=== PATIENT | female | born 1955 | race Caucasian/White ===

== ENCOUNTER → 2021-06-29 | Outpatient (CLI) | payer MEDICARE ==
[~2021-06-29] MED LIST: ADVAIR 250-501 EACH INH; BENICAR20 MG PO; CITALOPRAM HBR20 MG PO; CYCLOBENZAPRINE10 MG PO; DILTIAZEM 24HR120 MG PO; EXEMESTANE25 MG PO; HYDROXYZINE HCL25 MG PO; LINZESS PO; MIRTAZAPINE15 MG PO; NEXIUM40 MG PO; POLYETHYLENE GLY1 GM PO; PRAVASTATIN SOD40 MG PO; SPIRIVA18 MCG INH; ULTRAM 50MG50 MG PO
== END ==
LOC: RAD 15:45
PROVIDERS: ATTEND Family Medicine
DX: J01.00 Acute maxillary sinusitis, unspecified (principal)
CPT/HCPCS: 70210